=== PATIENT | female | born 1990 | race Caucasian/White ===

== ENCOUNTER 2016-08-11 10:21 | Emergency (ER) | payer OTHER ==
[~2016-08-11] VITALS: Wt 61.0 kg
[2016-08-11 11:37] LABS: ADD UMIC NO; URINE BILIRUBIN (Dip) NEGATIVE (NEGATIVE); URINE BLOOD (Dip) NEGATIVE (NEGATIVE); URINE COLOR LT. YELLOW (YELLOW); URINE GLUCOSE (Dip) NEGATIVE (NEGATIVE); URINE KETONES (Dip) 15 (NEGATIVE); URINE LEUKOCYTE ESTERASE (Dip) NEGATIVE (NEGATIVE); URINE NITRITE (Dip) NEGATIVE (NEGATIVE); URINE TOTAL PROTEIN (Dip) NEGATIVE (NEGATIVE); URINE UROBILINOGEN (Dip) 0.2 E.U./dL (0.1-1.0)
--- NOTE | 2016-08-11 11:38 | RADRPT ---
PROCEDURE: XR Chest. CLINICAL INDICATION: Shortness of breath. TECHNIQUE: Single frontal view. COMPARISON: None. FINDINGS: The lungs are clear. The heart size is normal. There is no pleural effusion. There is no pneumothorax. IMPRESSION: 1. Normal chest radiograph. RPTAT: QQ .Edu Gonzalez MD, Date Time Electronically viewed and signed by .Edu Gonzalez MD, on 08/11/2016 11:38 .R/
[2016-08-11 11:39] LABS: BASOPHILS % 0.6 % (0.0-2.0); EOSINOPHILS % 0.5 % (0.0-7.0); HEMATOCRIT 44.2 % (37.0-47.0); HEMOGLOBIN 15.4 g/dl (12.0-16.0); LYMPHOCYTES # 1.6 10^3/ul (0.8-2.9); LYMPHOCYTES % 19.6 % (15.0-51.0); MEAN CORPUSCULAR HEMOGLOBIN 32.3 pg (29.0-33.0); MEAN CORPUSCULAR HGB CONC 34.8 g/dl (32.0-37.0); MEAN CORPUSCULAR VOLUME 92.8 fl (82.0-101.0); MEAN PLATELET VOLUME 8.6 fl (7.4-10.4); MONOCYTE # 0.7 10^3/ul (0.3-0.9); MONOCYTES % 8.2 % (0.0-11.0); NEUTROPHIL # 5.8 10^3/ul (1.6-7.5); NEUTROPHILS % 71.1 % (39.0-77.0); PLATELET COUNT 259 10^3/UL (140-440); RED BLOOD COUNT 4.76 10^6/ul (4.20-5.40); RED CELL DISTRIBUTION WIDTH 12.7 % (11.5-14.5); UNCORRECTED WBC 8.1 10^3/ul (4.8-10.8); WHITE BLOOD COUNT 8.1 10^3/ul (4.8-10.8)
[2016-08-11 11:40] LABS: CONDITION 1
[2016-08-11 11:45] LABS: ALBUMIN 4.6 g/dl (3.3-4.9); POTASSIUM 3.6 mmol/L (3.5-5.1)
[2016-08-11 11:47] LABS: BILIRUBIN,INDIRECT 0.7 mg/dl (0-1.1); BILIRUBIN,TOTAL 0.7 mg/dl (0.2-1.3); CREATININE 0.64 mg/dl (0.44-1.00)
[2016-08-11 11:48] LABS: ALBUMIN/GLOBULIN RATIO 1.06; CALCIUM 9.7 mg/dl (8.4-10.2); TOTAL PROTEIN 8.9 g/dl (6.1-8.1)
[2016-08-11 12:22] VITALS: BP 146/77; PULSE 80; RESP 20
--- NOTE | 2016-08-11 16:56 | ERD ---
DATE OF SERVICE: 08/11/2016 HISTORY OF PRESENT ILLNESS: The patient is a 26-year-old female coming in complaining of palpitatio ns. The patient states she has occasional dizziness. She has not had had episodes of loss of consc iousness; however, she has episodes where she feels like the room is closing in on her and she becom es shaky and her hands get moist. She states that she has had a few episodes over the last week. D enies any chest pain. Denies shortness of breath. Her last menstrual period was 07/17/2016. She h as only had episodes of this over the last week. She has never had this before. Denies fevers. De nies any head injuries or recent traumatic injuries. MEDICAL HISTORY: Denies. ALLERGIES TO MEDICATIONS: Denies. SURGICAL HISTORY: Denies. SOCIAL HISTORY: Denies drug use. Weekly marijuana use. REVIEW OF SYSTEMS: A 12-point review of systems was done. Refer to HPI for positives. All other s ystems negative. PHYSICAL EXAMINATION VITAL SIGNS: Temperature is 98, pulse 104. Blood pressure is 118/58, respiratory rate 20, O2 sat 9 9% on room air. Pain intensity is 0/10. GENERAL: The patient is well-appearing, well-nourished, in no acute distress. HEART: Regular rate and rhythm. No murmurs, clicks, rubs or gallops. No S3 or S4. CHEST: Clear to auscultation bilaterally. There are no rales, wheezes or rhonchi. HEENT: Atraumatic. Conjunctivae are pink. Pupils equal, round, and reactive to light. There is no s cleral icterus. Tympanic membranes clear bilaterally. Oropharynx clear. No nystagmus or photophobia . ABDOMEN: Soft, nontender and nondistended. Good bowel sounds. No rebound or guarding. No gross caleb tonitis. No gross organomegaly or masses. No Mane sign or McBurney point tenderness. SKIN: There is no apparent rash or petechia. The skin is warm and dry. NEURO: Alert and oriented. Cranial nerves 2-12 intact. Motor strength in all 4 extremities with 5/5 strength. Sensation grossly intact. Normal speech and gait. Babinski negative. DTR 2+ throughout. EMERGENCY ROOM COURSE: The patient had blood work done in the ER. CBC was within normal limits. C MP was within normal limits. Patient's urine was within normal limits. Patient had a one-view ches t x-ray which showed normal chest radiograph. Urine was negative. Patient had an EKG wit h a rate of 89 beats per minute, no ST elevation, no T-wave inversion, no QT prolongations, no rmal axis, no arrhythmias. DIAGNOSIS: Dizziness, unknown cause. MEDICAL DECISION MAKING: I have low suspicion for hemodynamic and stability. Vital signs are stabl e. Patient is not hypotensive, have low suspicion for anemia. Patient's hemoglobin is stable, low suspicion for ectopic . Urine is within normal limits and is negative. Low susp icion for cardiac abnormality as patient is not complaining of chest pain. EKG is within normal garcia its. Low suspicion for pulmonary abnormalities. Chest x-ray is within normal limits. Oxygen satur ation 99% on room air. The patient may have multiple vasovagal episodes; however, I have recommende d patient to follow up with potato inspector and specialist as she likely is a candidate for Holter clinton tor specialist evaluation. I recommended the patient to refrain from driving in the event benjamín t she has an additional episode behind the wheel. The patient understood and complied. DISCHARGE: The patient is discharged stable. The patient started a prescription. The patient was told to follow up with primary care within 1 to 2 days for reevaluation. The patient given strict E R precautions. All other questions answered at the time of discharge. Discharge summary given at t he time of departure. The patient understood and complied with plan. Dictated By: JACOB PITTMAN for BERNARDO FIELDS/CLAIR Conf#: [id number] DID#: [id number]
== END 2016-08-11 12:26 | disposition home or self-care (01) ==
LOC: FTE 10:21
DX: R42 Dizziness and giddiness (principal)
CPT/HCPCS: 36415; 71010; 80053; 81003; 83690; 85025; 93005

== ENCOUNTER 2016-08-14 13:19 | Emergency (ER) | payer OTHER ==
[~2016-08-14] VITALS: Ht 157.5 cm; Wt 62.0 kg
[2016-08-14 13:24] VITALS: Ht 157.5 cm; Wt 62.0 kg
[2016-08-14] MEDS ORDERED: SOD CHLORIDE 0.9% 1,000 ML IV STA (13:35)
[2016-08-14 13:58] LABS: BASOPHILS % 0.4 % (0.0-2.0); EOSINOPHILS % 0.2 % (0.0-7.0); HEMATOCRIT 48.2 % (37.0-47.0); HEMOGLOBIN 16.3 g/dl (12.0-16.0); LYMPHOCYTES # 1.6 10^3/ul (0.8-2.9); LYMPHOCYTES % 13.4 % (15.0-51.0); MEAN CORPUSCULAR HEMOGLOBIN 31.9 pg (29.0-33.0); MEAN CORPUSCULAR HGB CONC 33.9 g/dl (32.0-37.0); MEAN CORPUSCULAR VOLUME 94.1 fl (82.0-101.0); MEAN PLATELET VOLUME 8.6 fl (7.4-10.4); MONOCYTE # 0.6 10^3/ul (0.3-0.9); MONOCYTES % 4.8 % (0.0-11.0); NEUTROPHIL # 9.9 10^3/ul (1.6-7.5); NEUTROPHILS % 81.2 % (39.0-77.0); PLATELET COUNT 312 10^3/UL (140-440); RED BLOOD COUNT 5.12 10^6/ul (4.20-5.40); RED CELL DISTRIBUTION WIDTH 12.8 % (11.5-14.5); UNCORRECTED WBC 12.2 10^3/ul (4.8-10.8); WHITE BLOOD COUNT 12.2 10^3/ul (4.8-10.8)
[2016-08-14 14:06] LABS: CONDITION 1
--- NOTE | 2016-08-14 14:06 | RADRPT ---
PROCEDURE: CT Brain without contrast. CLINICAL INDICATION: Seizures TECHNIQUE: Routine CT scan of the brain was performed on a high resolution multi detector scanner without intravenous contrast. One or more of the following dose reduction techniques were used: Auto mated exposure control; Adjustment of the mA and/or kV according to patient size; Use of iterative r econstruction technique. CTDI = 44 mGy. DLP = 630 mGy-cm. COMPARISON: No prior relevant examinations are available for comparison. FINDINGS: Hemorrhage: No evidence of intracranial hemorrhage. Acute ischemic changes: No evidence of acute ischemic changes. Mass effect/Midline shift: None. Parenchymal volume: Within normal limits for age. Ventricular system: Concordant with parenchymal volume. Chronic changes: Parenchymal attenuation is within normal limits. Extracranial soft tissues: Unremarkable. Calvarium: No fractures. Paranasal sinuses: Visualized paranasal sinuses are clear. Mastoid air cells: Visualized mastoid air cells are clear. IMPRESSION: No acute intracranial abnormalities. Normal appearance the brain parenchyma. MRI of the brain may be useful for further evaluation. RPTAT: AADD .Antony Lea MD, MD Date Time Electronically viewed and signed by .Antony Lea MD, on 08/14/2016 14:06 .B/
[2016-08-14 14:08] LABS: CALCIUM 9.7 mg/dl (8.4-10.2); CREATININE 0.66 mg/dl (0.44-1.00)
[2016-08-14 14:18] LABS: BARBITURATES NEGATIVE (NEGATIVE); BENZODIAZEPINES NEGATIVE (NEGATIVE); CANNABINOIDS POSITIVE (NEGATIVE); COCAINE NEGATIVE (NEGATIVE); OPIATES NEGATIVE (NEGATIVE)
[2016-08-14 15:35] VITALS: BP 116/96; PULSE 88; RESP 18; TEMP 98.4
--- NOTE | 2016-08-14 18:12 | ERD ---
ER Documentation Chief Complaint Date/Time DATE: 08/14/16 TIME: 18:12 Chief Complaint STATES HAVING AURAS AND STATES "BLACKED OUT" X2 WHILE DRIVING/ HPI Patient is a 26-year-old female with no medical problems who presents after passing out. The patient said that on she felt pressure in her head and in her brain. She felt like things were moving slow. She says that she "fainted" while driving. This happened again on Friday and then 4 times at work. She saw her primary doctor yesterday who recommended that she get a CT scan of the brain but she has not gotten that as of yet. Upon review of old medical records the patient had one previous visit to the ER on August 11 for dizziness. ROS All systems reviewed and are negative except as per history of present illness. Medications Home Meds No Active Prescriptions or Reported Meds Allergies Allergies: Coded Allergies: No Known Allergy (Unverified , 08/11/16) PMhx/Soc Medical and Surgical Hx: pt denies Medical Hx, pt denies Surgical Hx Hx Alcohol Use: Yes ([facility]) Hx Substance Use: Yes (marajuana) Hx Tobacco Use: No Smoking Status: Never smoker FmHx Family History: No diabetes Physical Exam Vitals Vital Signs Date Time Temp Pulse Resp B/P Pulse Ox O2 Delivery O2 Flow Rate FiO2 08/14/16 13:24 98.4 85 18 143/73 99 Physical Exam Const: No acute distress Head: Atraumatic Eyes: Normal Conjunctiva ENT: Normal External Ears, Nose and Mouth. Neck: Full range of motion..~ No meningismus. Resp: Clear to auscultation bilaterally Cardio: Regular rate and rhythm, no murmurs Abd: Soft, non tender, non distended. Normal bowel sounds Skin: No petechiae or rashes Back: No midline or flank tenderness Ext: No cyanosis, or edema Neur: Awake and alert, cranial nerves II through XII intact, no slurred speech, gait is normal Psych: Normal Mood and Affect Result Diagram: 08/14/16 1340 08/14/16 1340 Results 24 hrs Laboratory Tests Test 08/14/16 13:40 08/14/16 13:53 Anion Gap 17 Basophils # 0.010^3/ul Basophils % 0.4% Blood Urea Nitrogen 8mg/dl Calcium Level 9.7mg/dl Carbon Dioxide Level 28mmol/L Chloride Level 101mmol/L Creatinine 0.66mg/dl Eosinophils # 0.010^3/ul Eosinophils % 0.2% Glucose Level 99mg/dl Hematocrit 48.2% Hemoglobin 16.3g/dl Lymphocytes # 1.610^3/ul Lymphocytes % 13.4% Mean Corpuscular Hemoglobin 31.9pg Mean Corpuscular Hemoglobin Concent 33.9g/dl Mean Corpuscular Volume 94.1fl Mean Platelet Volume 8.6fl Monocytes # 0.610^3/ul Monocytes % 4.8% Neutrophils # 9.910^3/ul Neutrophils % 81.2% Nucleated Red Blood Cells # 0.010^3/ul Nucleated Red Blood Cells % 0.0/100WBC Platelet Count 97931^3/UL Potassium Level 4.0mmol/L Red Blood Count 5.1210^6/ul Red Cell Distribution Width 12.8% Sodium Level 142mmol/L Urine Amphetamines Screen NEGATIVE Urine Barbiturates NEGATIVE Urine Benzodiazepines Screen NEGATIVE Urine Cannabinoids POSITIVE Urine Cocaine Screen NEGATIVE Urine Opiates Screen NEGATIVE White Blood Count 12.210^3/ul Bedside Glucose 111mg/dL Current Medications Medications (Trade) Dose Ordered Sig/Edwin Route PRN Reason Start Time Stop Time Status Last Admin Dose Admin Sodium Chloride (NS) 1,000 ml @ 1,000 mls/hr Q1H STAT IV 08/14/16 13:35 08/14/16 14:34 DC 08/14/16 13:38 Procedures/MDM EKG read by me: Rate/Rhythm: Regular rate and rhythm at a normal rate Intervals: Normal Impression: No evidence of ischemia or arrhythmia CT scan is normal per radiology. Patient is a 26-year-old female with no medical problems who presents with syncope versus seizure. The patient has normal laboratory studies and a normal CT scan of the brain. Her EKG is normal. She has no history of Guevara-Parkinson -White or Brugada syndrome in the family. The patient is well-appearing and was given 1 L of normal saline for fluid resuscitation. I told her that she cannot drive until she is cleared by her doctor and we have made a report to the [facility]. The patient will need to follow-up with her primary doctor and possibly a neurologist to investigate this further. It is possible syncopal events versus seizure. I will not start her any new medications at this time. Departure Diagnosis: Primary Impression: Seizure Condition: Fair Patient Instructions: Seizure, New Onset, Unk Cause [Adult] Referrals: Your doctor Additional Instructions: Call your primary care doctor TOMORROW for an appointment during the next 1-2 days.See the doctor sooner or return here if your condition worsens before your appointment time. MALU VALLADARES MD Aug 14, 2016 18:12
== END 2016-08-14 15:35 | disposition home or self-care (01) ==
LOC: E/R 13:19
DX: R56.9 Unspecified convulsions (principal); R40.2142 Coma scale, eyes open, spontaneous, at arrival to emergency department; R40.2252 Coma scale, best verbal response, oriented, at arrival to emergency department; R40.2362 Coma scale, best motor response, obeys commands, at arrival to emergency department
CPT/HCPCS: 36415; 70450; 80048; 80307; 82962; 85025; 93005; J7030; Z7502

== ENCOUNTER 2016-09-20 12:52 | Emergency (ER) | payer OTHER ==
[~2016-09-20] VITALS: Ht 157.5 cm; Wt 59.5 kg
[2016-09-20 13:00] VITALS: Ht 157.5 cm; Wt 59.5 kg
--- NOTE | 2016-09-20 14:20 | RADRPT ---
PROCEDURE: XR Chest. CLINICAL INDICATION: Chest pain and shortness of breath. TECHNIQUE: AP Portable chest. COMPARISON: Chest x-ray 08/11/2016. FINDINGS: The cardiomediastinal silhouette is normal. The lungs are clear and costophrenic angles sharp. The osseous structures are unremarkable. IMPRESSION: No radiographic evidence of acute cardiopulmonary disease. RPTAT: PP .Beena Huff MD, MD Date Time Electronically viewed and signed by .Beena Huff MD, MD on 09/20/2016 14:20 .H/
--- NOTE | 2016-09-20 14:46 | ERD ---
ER Documentation Chief Complaint Date/Time DATE: 09/20/16 TIME: 14:38 Chief Complaint SOB WITH MUSCLE SPASM (WORSE WHEN LYING DOWN), PALPATATIONS HPI Patient is a 26-year-old female who presents to the emergency department with shortness of breath and palpitations. Patient states that her symptoms started approximately 2 weeks ago. Patient states that her palpitations have been episodic in nature. Patient states that her episodes last less than 1 minute. She reports 3-4 episodes per day. Patient states the episodes can occur while at rest such as sitting in class. Patient also complaining of occasional midsternal chest pain. Patient denies any radiation of the pain. Patient denies any arm pain, jaw pain, shoulder pain, diaphoresis. Patient states that the chest pain can be worse with lying down. She describes the pain to be "pounding" in nature. She states it feels "like someone is stabbing my chest". Patient also reports leg spasms and back spasms. Patient denies any recent hair loss, heat intolerance, or recent weight loss. Patient states that she has seen her primary care physician and neurologist for her symptoms with no explanation. Patient denies any recent surgery, recent long distance travel, prolonged sitting, estrogen use. Of note, patient does admit to one year of MDMA and ecstasy use. Patient states she stopped using these drugs a few months ago. ROS All systems reviewed and are negative except as per history of present illness. Medications Home Meds No Active Prescriptions or Reported Meds Allergies Allergies: Coded Allergies: No Known Allergy (Unverified , 08/11/16) PMhx/Soc Medical and Surgical Hx: pt denies Medical Hx, pt denies Surgical Hx Hx Alcohol Use: Yes ([facility]) [facility] Hx Tobacco Use: No Smoking Status: Never smoker FmHx Family History: No diabetes Physical Exam Vitals Vital Signs Date Time Temp Pulse Resp B/P Pulse Ox O2 Delivery O2 Flow Rate FiO2 09/20/16 15:10 97.9 88 16 115/72 97 Room Air 09/20/16 13:00 97.9 85 16 112/73 97 Physical Exam GENERAL: Well-developed, well-nourished female. Appears in no acute distress. HEAD: Normocephalic, atraumatic. No deformities or ecchymosis. EYE: Pupils equal, round, and reactive to light. EOMs intact. No conjunctival erythema. No eye discharge. ENT: External ear without any masses or tenderness. Auditory canals clear bilaterally. TM visualized bilaterally, non-erythematous, non-bulging. Nasal mucosa pink with no discharge. Oropharynx is pink without any tonsillar erythema or exudates. No uvula deviation. No kissing tonsils. NECK: Supple. No meningismus. Normal ROM of the neck. LUNG: Clear to auscultation bilaterally. No rhonchi, wheezing, rales or coarse breath sounds. HEART: Regular rate and rhythm. No murmurs, rubs or gallops. Chest nontender to palpation. ABDOMEN: Soft, nontender, and nondistended. Positive bowel sounds in all four quadrants. No rebound tenderness, no guarding. (-) McBurney's point tenderness. No CVA tenderness. BACK: No midline tenderness. EXTREMITES: Equal pulses bilaterally. No peripheral clubbing, cyanosis or edema. No unilateral leg swelling. NEUROLOGIC: Alert and oriented to person, place and time. Moving all four extremities. 5/5 strength in all extremities. Normal speech. Steady gait. SKIN: Normal color. Warm and dry. No rashes or lesions. Procedures/MDM ED COURSE: The patient was stable throughout ED course. I kept the patient and/or family informed of laboratory and diagnostic imaging results throughout the ED course. EKG: Read by Dr. Mcginnis, attending physician. EKG shows normal sinus rhythm with sinus arrhythmia of 65 bpm. No arrhythmias, acute ST elevations or T wave changes were noted. DIAGNOSTIC IMAGING: Read by radiologist. DIAGNOSTIC IMAGING REPORT Patient: CHERYL BAUTISTA : 1990 Age: 26 Sex: F [id number] DOS: 09/20/16 1345 Ordering MD: SUDHEER ARCE PA-C Location: [facility] Room/Bed: PROCEDURE: XR Chest. CLINICAL INDICATION: Chest pain and shortness of breath. TECHNIQUE: AP Portable chest. COMPARISON: Chest x-ray 08/11/2016. FINDINGS: The cardiomediastinal silhouette is normal. The lungs are clear and costophrenic angles sharp. The osseous structures are unremarkable. IMPRESSION: No radiographic evidence of acute cardiopulmonary disease. RPTAT: PP .Beena Huff MD, MD Date Time Electronically viewed and signed by .Beena Huff MD, on 09/20/2016 14:20 .H/ CC: SUDHEER ARCE PA-C MEDICAL DECISION MAKING: This is a 26-year-old female who presents with shortness of breath and palpitations 2 weeks. Patient denied any recent surgeries, travel, exogenous estrogen use. Vital signs were reviewed. Patient was afebrile. Patient was not hypoxic. Cardiac exam was normal. Lung exam was normal. EKG was within normal limits. Low suspicion for acute coronary syndrome, arrhythmia or pericarditis. CXR was within normal limits. Low suspicion for pneumothorax, pneumonia or pleural effusion. PERC Score was 0. Low suspicion for PE. Upon discussing patient's CXR results with her, patient noted having palpitations again. I checked the patient's pulse myself and it was noted to be 85 bpm. I explained to the patient that her pulse was in normal range and she was not tachycardic. Given these findings, the patient's presentation is most consistent with shortness of breath and palpitations of unknown etiology. Unable to rule out hyperthyroidism at this time. DISCHARGE: At this time, patient is stable for discharge and outpatient management. I have instructed the patient to follow-up with his/her primary care physician in 1-2 days. I advised the patient to follow-up with her primary care physician for thyroid studies. I advised the patient to see a dog behaviorist for further workup of her symptoms including possible 24 hour monitoring. I have instructed the patient to promptly return to the ER at any time for any new or worsening symptoms including increased increased pain, fever, nausea, vomiting, numbness, weakness, diaphoresis or LOC. The patient and/or family expressed understanding of and agreement with this plan. All questions were answered. Home care instructions were provided. Departure Diagnosis: Primary Impression: Palpitations Additional Impression: Shortness of breath Condition: Stable Patient Instructions: Chest Pain, Uncertain Cause Referrals: [facility] (PCP) Additional Instructions: Call your primary care doctor TOMORROW for an appointment during the next 1-2 days.See the doctor sooner or return here if your condition worsens before your appointment time. Advised the patient to follow-up with her primary care physician for further management. Advised patient to follow-up with her primary care physician for thyroid studies. EKG within normal limits today. Chest x-ray within normal limits today. Patient may need to see a dog behaviorist for further workup of her chest pain, palpitations and shortness of breath. Advised patient she may need 24 hour Holter monitor further workup of her symptoms. SUDHEER ARCE PA-C Sep 20, 2016 14:46
[2016-09-20 15:10] VITALS: BP 115/72; PULSE 88; RESP 16; TEMP 97.9
== END 2016-09-20 15:32 | disposition home or self-care (01) ==
LOC: FTE 12:52
DX: R00.2 Palpitations (principal)
CPT/HCPCS: 71010; Z7502; 93005